=== PATIENT | female | born 1980 | race Caucasian/White ===

== ENCOUNTER → 2024-12-12 08:26 | Outpatient (REF) | payer BC, SELFPAY | LOC: PAVMRI 08:26 | PROVIDERS: ATTENDING PHYSICIAN Family Medicine | DX: R20.2 Paresthesia of skin (principal) | CPT/HCPCS: 70553; A9575 ==

== ENCOUNTER → 2024-12-19 07:36 | Outpatient (REF) | payer BC, SELFPAY | LOC: EMG 07:36 | PROVIDERS: ATTENDING PHYSICIAN Family Medicine | DX: R20.2 Paresthesia of skin (principal); R20.0 Anesthesia of skin | CPT/HCPCS: 95886; 95911 ==